=== PATIENT | male | born 1975 | race Two or more races ===

== ENCOUNTER 2019-02-19 18:25 | Inpatient (IN) | payer MEDICAID ==
[~2019-02-19] VITALS: Ht 175.3 cm; Wt 88.5 kg
[2019-02-19 19:13] LABS: Urine Bacteria NONE SEEN /hpf (None Seen); Urine Blood Negative /uL (Negative); Urine Specific Gravity 1.048 (1.001-1.035); Urine WBC 1 /hpf (0 - 3)
[2019-02-19 19:18] LABS: Basophils # (auto) 0.1 uL; Eosinophils # (auto) 0.1 uL; Eosinophils % (auto) 0.8 % (0.0-7.0); Hematocrit 47.2 % (41.0-53.0); Hemoglobin 16.6 g/dL (13.5-17.5); Lymphocytes % (auto) 19.9 % (10.0-50.0); Mean Corpuscular Hemoglobin 32.7 pg (28.0-32.0); Mean Corpuscular Hgb Conc. 35.2 g/dL (32.0-36.0); Mean Corpuscular Volume 92.9 fL (80.0-100.0); Monocytes # (auto) 0.8 uL; Monocytes % (auto) 8.3 % (0.0-12.0); Nucleated Red Blood Cells % 0.1 %; Platelet Count (auto) 170 10^3/uL (140-450); Red Blood Cells 5.08 10^6/uL (4.5-5.90); Red Cell Distribution Width 12.6 % (11.8-14.3)
[2019-02-19 19:47] LABS: Albumin 4.1 g/dL (3.4-5.0); BUN/Creatinine Ratio 19.1; Bilirubin, Total 3.4 mg/dL (0.2-1.0); Calcium 9.5 mg/dL (8.5-10.1); Potassium 3.9 mmol/L (3.5-5.1); Total Protein 8.3 g/dL (6.4-8.2)
[2019-02-20] MEDS ORDERED: DEXTROSE (50%) 50ML SYRG IV PRN ×2 (02:45→13:45)
[2019-02-20] MEDS ORDERED: HYDROcodone-ACET 5/325MG TAB PO PRN (02:45)
[2019-02-20] MEDS ORDERED: ACETAMINOPHEN 325 MG TAB PO PRN (02:45)
[2019-02-20] MEDS ORDERED: TEMAZEPAM 15 MG CAP PO PRN (02:45)
[2019-02-20] MEDS ORDERED: MORPHINE SULFATE 4 MG/ML SYR/VIAL IV PRN (02:45)
[2019-02-20] MEDS ORDERED: ONDANSETRON HCL 4 MG/2 ML VIAL IV PRN (02:45)
--- NOTE | 2019-02-20 04:08 | NUR ---
MS admit from [facility] admitted to tele/MS after SBAR received. Patient oriented to Franchesca hoff RN, unit, room, bed, and unit policies regarding patient care and visiting hours. Patient weighed by bed scale and encouraged to call if they need something. All questions and concerns addressed, patient verbalized understanding. Note: Came per wheelchair awake alert oriented x 4, not in respiratory distress,vital signs checked, advised NPO.
[2019-02-20 04:10] VITALS: BP 120/91
[2019-02-20] MEDS: SODIUM CHLORIDE 0.9% 1,000 ML IV SCH ×2 (04:49→13:21)
[2019-02-20] MEDS ORDERED: NORPTMEDS (05:04)
[2019-02-20 05:50] VITALS: BP 120/91
[2019-02-20] MEDS: ACCU-CHEK COMFORT CURVE STRIP VI SCH ×4 (05:51→23:25)
[2019-02-20] MEDS ORDERED: InsuLIN REG 1unit/0.01ml Soln (100units/ml) SC SCH (06:00)
--- NOTE | 2019-02-20 07:26 | NUR ---
Report given to ca Green is resting and to follow-up to [facility] if they want to order sliding scale on him.
[2019-02-20] MEDS ORDERED: GASTROGRAFIN 120 ML SOL ONE (07:51)
--- NOTE | 2019-02-20 08:00 | NUR ---
RECEIVED PATIENT ALERT AND ORIENTED X4, NOT IN DISTRESS, CLEAR LS IN BILATERAL LUNG LOBES, RR=18 SAT=98%, DEEP BREATHING AND COUGHING ENCOURAGED, DEMONSTRATED AND VERBALIZED UNDERSTANDING WELL, HEART R=78 DENIED CHEST PAIN OR DISCOMFORT AT THIS MOMENT, ABDOMEN SOFT WITH ACTIVE BS, KEEP NPO ORDERED, COOPERATE AND COMPLIANT TO STAY NPO, LARGE CONSISTENT BROWN BM THIS MORNING REPORTED, SKIN DRY AND INTACT WARM TO TOUCH, RADIAL AND PEDAL PULSES PALPABLE, CAP REFILL<3 SECONDS, RESTING ON BED, HEAD OF BED ELEVATED, BED ON LOW POSITION, RAILS UP X2, CALL LIGHT ON REACH, PENDING SURGICAL CONSULT AND ABDOMINAL SMALL BOWEL SERIES, WILL CONTINUE MONITORING.
--- NOTE | 2019-02-20 09:28 | NUR ---
WENT ON WC FOR SMALL BOWEL SERIES AND CAME BACK, NOT IN DISTRESS, DENIED PAIN, WILL CONTINUE MONITORING.
[2019-02-20 10:00] VITALS: BP 110/73
[2019-02-20] MEDS: FAMOTIDINE 20 MG TAB PO SCH ×2 (10:00→21:26)
[2019-02-20] MEDS: cefTRIAXone 1GM/50ML D5W 50 ML IV SCH (10:37)
[2019-02-20 13:00] VITALS: BP 112/88
[2019-02-20 17:00] VITALS: BP 155/98
[2019-02-20] MEDS: InsuLIN REG 1unit/0.01ml Soln (100units/ml) SC SCH ×2 (18:00→23:25)
--- NOTE | 2019-02-20 19:42 | NUR ---
Opening Shift Note Assumed care of patient, awake and alert. No S/S of distress/SOB or pain. Instructed on POC and to call for assist PRN, will continue to monitor for changes Q1hr and PRN.Left upper arm marjorie cath. access with in normal .
--- NOTE | 2019-02-20 19:46 | NUR ---
DENIED PAIN, RESTING ON THE BED, HEAD OF BED ELEVATED, BED IN LOW POSITION RAILS UP X2, CALL LIGHT ON REACH, REPORT WAS GIVEN TO THE SALES TECHNICIAN RN.
--- NOTE | 2019-02-20 19:53 | NUR ---
Opening Shift Note Assumed care of patient, awake and alert. No S/S of distress/SOB or pain. Instructed on POC and to call for assist PRN, will continue to monitor for changes Q1hr and PRN. at bedside.
[2019-02-20 22:00] VITALS: BP 120/98
[2019-02-21] MEDS: SODIUM CHLORIDE 0.9% 1,000 ML IV SCH (02:17)
[2019-02-21 05:00] VITALS: BP 114/79
[2019-02-21] MEDS: ACCU-CHEK COMFORT CURVE STRIP VI SCH ×2 (05:45→12:00)
[2019-02-21] MEDS: InsuLIN REG 1unit/0.01ml Soln (100units/ml) SC SCH ×2 (05:46→12:00)
[2019-02-21 06:07] LABS: Basophils # (auto) 0.1 uL; Basophils % (auto) 0.6 % (0.0-2.0); Eosinophils # (auto) 0.2 uL; Hematocrit 43.1 % (41.0-53.0); Hemoglobin 15.2 g/dL (13.5-17.5); Lymphocytes # (auto) 2.3 uL; Lymphocytes % (auto) 21.4 % (10.0-50.0); Mean Corpuscular Hgb Conc. 35.3 g/dL (32.0-36.0); Mean Corpuscular Volume 93.4 fL (80.0-100.0); Monocytes # (auto) 0.8 uL; Monocytes % (auto) 7.2 % (0.0-12.0); Neutrophils # (auto) 7.4 uL; Neutrophils % (auto) 68.8 % (37.0-80.0); Nucleated Red Blood Cells % 0.1 %; Platelet Count (auto) 148 10^3/uL (140-450); Red Blood Cells 4.61 10^6/uL (4.5-5.90); Red Cell Distribution Width 12.7 % (11.8-14.3); White Blood Cell 10.7 10^3/uL (4.4-10.8)
[2019-02-21 06:19] LABS: Albumin 3.6 g/dL (3.4-5.0); Calcium 7.9 mg/dL (8.5-10.1); Potassium 3.3 mmol/L (3.5-5.1)
[2019-02-21 06:23] LABS: BUN/Creatinine Ratio 29.1; Bilirubin, Total 1.7 mg/dL (0.2-1.0); Total Protein 7.1 g/dL (6.4-8.2)
--- NOTE | 2019-02-21 07:00 | NUR ---
Opening Shift Note Assuming care of patient at this time. Patient is awake and alert. Patient is resting in bed with bed locked and lowered with side rails up x2. Patient denies pain. Patient shows no signs or symptoms of distress or shortness of breath. Instructed patient on the plan of care for today and to call for assistance as needed. Patient states, "I want to go home. I'm ready to go home." Call light within reach. Will continue to round hourly and as needed.
--- NOTE | 2019-02-21 07:17 | NUR ---
Report given to Keron Salinas, patient is resting , no distress.
[2019-02-21 09:00] VITALS: BP 116/92
[2019-02-21] MEDS: FAMOTIDINE 20 MG TAB PO SCH (09:27)
[2019-02-21] MEDS: cefTRIAXone 1GM/50ML D5W 50 ML IV SCH (09:27)
[2019-02-21] MEDS ORDERED: METF-372 PO (10:36)
--- NOTE | 2019-02-21 13:18 | NUR ---
Discharge Discharge instructions given as ordered. Encourage to follow up with PMD as instructed. All questions and concerns addressed. Patient verbalized understanding. IV removed with catheter intact, pressure dressing applied. Patient taken to vehicle with all personal belongings, accompanied by staff and family member. No distress noted at time of departure. Prescription taken to [facility] pharmacy. Patient aware to bulk picker upon discharge. Diabetic education given. Patient refused the final accucheck. Patient verbalizes that he knows how to check his blood sugar without the help of the RN.
== END 2019-02-21 13:20 | disposition home or self-care (01) | DRG 247 ==
LOC: ER 18:27 → OVERFLOW 18:28 → WEST WING 02-20 04:03
PROVIDERS: ADMIT Nurse Practitioner; ATTEND Internal Medicine Nephrology
DX: K56.600 Partial intestinal obstruction, unspecified as to cause (principal); E11.65 Type 2 diabetes mellitus with hyperglycemia; K52.9 Noninfective gastroenteritis and colitis, unspecified; E80.6 Other disorders of bilirubin metabolism; E87.1 Hypo-osmolality and hyponatremia; Z82.0 Family history of epilepsy and other diseases of the nervous system
CPT/HCPCS: 36415; 74176; 74250; 80053; 81001; 82962; 83036; 83690; 85025; G0378; J0696; J1815

== ENCOUNTER 2020-11-19 07:09 | Emergency (ER) | payer MEDICAID ==
[~2020-11-19] VITALS: Ht 175.3 cm; Wt 77.1 kg
[~2020-11-19 07:09] MED LIST: NORPTMEDS
[2020-11-19 07:30] VITALS: BP 112/82
== END 2020-11-19 07:50 | disposition home or self-care (01) ==
LOC: ER 07:09
DX: E11.65 Type 2 diabetes mellitus with hyperglycemia (principal); Z76.0 Encounter for issue of repeat prescription

== ENCOUNTER 2021-03-03 13:03 | Emergency (ER) | payer MEDICAID ==
[~2021-03-03] VITALS: Ht 175.3 cm; Wt 77.1 kg
[2021-03-03 15:26] VITALS: BP 138/78
== END 2021-03-03 16:00 | disposition home or self-care (01) ==
LOC: ER 13:03
DX: E11.9 Type 2 diabetes mellitus without complications (principal); Z76.0 Encounter for issue of repeat prescription
CPT/HCPCS: 82962

== ENCOUNTER 2022-11-07 22:56 | Emergency (ER) | payer MEDICAID ==
[~2022-11-07] VITALS: Ht 175.3 cm; Wt 72.0 kg
[2022-11-07 23:14] VITALS: BP 148/99
[2022-11-07] MEDS ORDERED: METF-372 PO (23:42)
[2022-11-07] MEDS ORDERED: InsuLIN REG 1unit/0.01ml Soln (100units/ml) SC ONE (23:45)
[2022-11-08 00:13] LABS: Basophils # (auto) 0.1 10 ^3/uL (0-0.2); Basophils % (auto) 1.3 % (0.0-2.0); Eosinophils # (auto) 0.2 10 ^3/uL (0-0.8); Eosinophils % (auto) 2.1 % (0.0-7.0); Hematocrit 44.5 % (41.0-53.0); Hemoglobin 15.7 g/dL (13.5-17.5); Lymphocytes # (auto) 2.5 10 ^3/uL (0.4-5.4); Lymphocytes % (auto) 31.7 % (10.0-50.0); Mean Corpuscular Hemoglobin 32.7 pg (28.0-32.0); Mean Corpuscular Hgb Conc. 35.3 g/dL (32.0-36.0); Mean Corpuscular Volume 92.6 fL (80.0-100.0); Monocytes # (auto) 0.5 10 ^3/uL (0-1.3); Monocytes % (auto) 6.4 % (0.0-12.0); Neutrophils # (auto) 4.6 10 ^3/uL (1.6-8.6); Neutrophils % (auto) 58.5 % (37.0-80.0); Nucleated Red Blood Cells % 0.1 %; Red Blood Cells 4.81 10^6/uL (4.5-5.90); Red Cell Distribution Width 12.6 % (11.8-14.3); White Blood Cell 7.8 10^3/uL (4.4-10.8)
[2022-11-08 00:31] LABS: BUN/Creatinine Ratio 23.9 (10.0-20.0); Calcium 8.8 mg/dL (8.5-10.1); Potassium 3.7 mmol/L (3.5-5.1)
[2022-11-08 00:34] LABS: Bilirubin, Total 1.9 mg/dL (0.2-1.0); Total Protein 7.7 g/dL (6.4-8.2)
== END 2022-11-08 01:53 | disposition home or self-care (01) ==
LOC: ER 22:56
DX: E11.65 Type 2 diabetes mellitus with hyperglycemia (principal); R74.8 Abnormal levels of other serum enzymes; R79.89 Other specified abnormal findings of blood chemistry; E86.0 Dehydration; Z98.890 Other specified postprocedural states; Z76.0 Encounter for issue of repeat prescription
CPT/HCPCS: 36415; 80053; 82962; 85025; 96372; 99283; J1815

== ENCOUNTER 2022-12-23 17:24 | Emergency (ER) | payer MEDICAID ==
[~2022-12-23] VITALS: Ht 175.3 cm; Wt 74.2 kg
[~2022-12-23 17:24] MED LIST changes: +METF-372 PO
[2022-12-23 20:12] VITALS: BP 140/89; PULSE 96; RESP 18; TEMP 98.7; O2SAT 98
[2022-12-23] MEDS ORDERED: ONDANSETRON ODT 4 MG TAB PO ONE (20:15)
[2022-12-23] MEDS ORDERED: HYDROcodone-ACET 5/325MG TAB PO ONE (20:15)
[2022-12-23] MEDS ORDERED: HYDR-4902 PO (20:40)
[2022-12-23] MEDS ORDERED: ZOFR4T PO (20:40)
== END 2022-12-23 20:49 | disposition home or self-care (01) ==
LOC: ER 17:24
DX: S80.252A Superficial foreign body, left knee, initial encounter (principal); E11.9 Type 2 diabetes mellitus without complications; Z79.84 Long term (current) use of oral hypoglycemic drugs; Z79.899 Other long term (current) drug therapy; W34.00XA Accidental discharge from unspecified firearms or gun, initial encounter; Y93.89 Activity, other specified; Y92.89 Other specified places as the place of occurrence of the external cause; Y99.8 Other external cause status
CPT/HCPCS: 73562; 99283; Q0162

== ENCOUNTER 2024-12-10 06:10 | Day surgery (SDC) | payer MEDICAID ==
[2024-12-06 10:24] LABS: Hematocrit 42.6 % (41.0-53.0); Hemoglobin 15.2 g/dL (13.5-17.5); Mean Corpuscular Hemoglobin 33.2 pg (28.0-32.0); Mean Corpuscular Volume 92.7 fL (80.0-100.0); Nucleated Red Blood Cells % 0.0 %
[2024-12-06 10:41] LABS: INR 1.04 (0.9-1.15); Partial Thromboplastin Time 26.9 SEC (24.5-34.5); Prothrombin Time 11.0 sec (9.3-11.8); Urine Protein, UAD Negative (Negative)
[2024-12-06 10:56] LABS: Alanine Aminotransferase 15 U/L (7-40); Albumin 4.5 g/dL (3.2-4.8); Alkaline Phosphatase 114 U/L (46-116); Anion Gap 6 (5-15); BUN/Creatinine Ratio 18.2 (10.0-20.0); Blood Urea Nitrogen 12 mg/dL (9-23); Calcium 9.1 mg/dL (8.7-10.4); Carbon Dioxide 26 mmol/L (20-31); Chloride 103 mmol/L (98-107); Potassium 4.0 mmol/L (3.5-5.1); Total Protein 7.1 g/dL (5.7-8.2)
[2024-12-06 10:58] LABS: Bilirubin, Total 2.3 mg/dL (0.2-1.0); Glucose 208 mg/dL (74-106); Sodium 135 mmol/L (136-145)
[~2024-12-10] VITALS: Ht 175.3 cm; Wt 72.6 kg
[~2024-12-10 06:10] MED LIST changes: -NORPTMEDS
[2024-12-10] MEDS ORDERED: GABAPENTIN 300 MG CAP PO ONE (06:45)
[2024-12-10] MEDS ORDERED: CELECOXIB 100 MG CAP PO ONE (06:45)
[2024-12-10] MEDS ORDERED: ACETAMINOPHEN IV 1000 MG/100ML (10MG/ML) IV ONE (06:45)
[2024-12-10] MEDS ORDERED: KETOROLAC TROMETH 30 MG/ML 1ML VIAL ONE (07:01)
[2024-12-10] MEDS ORDERED: GLYCOPYRROLATE 0.2 MG/ML 1ML VIAL ONE (07:01)
[2024-12-10] MEDS ORDERED: PROPOFOL 10 MG/ML 20 ML IV ONE (07:01)
[2024-12-10] MEDS ORDERED: ONDANSETRON HCL 4 MG/2 ML VIAL ONE (07:01)
[2024-12-10] MEDS ORDERED: LIDOCAINE 2% (LOCAL ANESTH.) PF 5ml SDV ONE (07:01)
[2024-12-10] MEDS ORDERED: KETAMINE 50mg/ML 1ml syringe ONE (07:02)
[2024-12-10] MEDS: ceFAZolin 2 GM/D5W50ml 50 ML IV ONE (07:10)
[2024-12-10] MEDS: BUPIVACAINE 0.5% MPF INJ 30ML SDV IJ ONE (07:33)
[2024-12-10 07:41] VITALS: PULSE 97; RESP 13; TEMP 98; O2SAT 99
[2024-12-10] MEDS ORDERED: ONDANSETRON HCL 4 MG/2 ML VIAL IV PRN (07:45)
[2024-12-10] MEDS ORDERED: FLUMAZENIL 0.1 MG/ML INJ 10ML MDV IV PRN (07:45)
[2024-12-10] MEDS ORDERED: HYDROmorphone HCL 2 MG/ML VL/or syr IV PRN (07:45)
[2024-12-10] MEDS ORDERED: fentaNYL CITRATE 100 MCG/2 ML VL IV PRN (07:45)
[2024-12-10] MEDS ORDERED: NALOXONE HCL 0.4 MG/ML VIAL IV PRN (07:45)
[2024-12-10] MEDS ORDERED: hydrALAZINE HCL 20 MG/ML VL IV PRN (07:45)
[2024-12-10 08:26] VITALS: BP 120/81; PULSE 84; RESP 11; O2SAT 96
--- NOTE | 2024-12-15 12:02 | DVHOP2 ---
Operative Report - 2 Report Details Date: 12/10/24 Preop Diagnosis: Left knee foreign body by MCL Postop Diagnosis: Left knee foreign body by MCL Surgeon: Oly Church MD Brick Tender: Robby MEHTA Anesthesiologist: Brandon JORDAN Anesthesia: General Consent: The patient was informed of the risks and benefits of the procedure. These include but are not limited to complications of anesthesia, postoperative infection, incomplete relief of symptoms, recurrence of symptoms, damage to blood vessels, nerves and tendons, deep venous thrombosis, pulmonary embolism and possible need for repeat surgery in the future. Estimated Blood Loss: 2 cc Name of Procedure Performed 1. Left knee foreign body removal; 2. Irrigation and debridement of left knee Procedure Details Procedure Details: After obtaining informed consent, the patient was brought to the operating room and placed in the supine position. After administration of general anesthesia the left lower extremity was prepped and draped in sterile fashion. A longitudinal incision was made along the medial aspect of the left knee, centered over the area of foreign body localization. Dissection was carried carefully through the subcutaneous tissues down to the medial retinaculum and the superficial layer of the medial collateral ligament (MCL). The MCL was carefully split longitudinally to gain access to the deeper layers. The foreign body was identified embedded superficial to the MCL and was carefully extracted using forceps, taking care not to damage adjacent neurovascular structures or joint capsule. The area was copiously irrigated with normal saline where foreign body was located. No additional foreign material or contamination was identified. Hemostasis was achieved with electrocautery. The subcutaneous tissue and skin were closed in layers with absorbable sutures and skin closure strips. Sterile dressing was applied, and the patient was transferred to the recovery unit in stable condition. Condition Good Disposition Home OLY CHURCH MD Dec 15, 2024 12:02
== END 2024-12-10 08:55 | disposition home or self-care (01) ==
LOC: SUR 06:10 → EDUNIT# 12:45
PROVIDERS: ATTEND Orthopaedic Surgery Adult Reconstructive Orthopaedic Surgery
DX: S80.252A Superficial foreign body, left knee, initial encounter (principal); M79.5 Residual foreign body in soft tissue; E11.9 Type 2 diabetes mellitus without complications; Z79.84 Long term (current) use of oral hypoglycemic drugs; Z98.890 Other specified postprocedural states; X58.XXXA Exposure to other specified factors, initial encounter; Y93.89 Activity, other specified; Y92.89 Other specified places as the place of occurrence of the external cause; Y99.8 Other external cause status
CPT/HCPCS: 27372; 36415; 80053; 81001; 82962; 85025; 85610; 85730; 88300; J0690; J1100; J1885; J2003; J2405; J2704; J3490

== ENCOUNTER 2024-12-25 19:24 | Emergency (ER) | payer MEDICAID ==
[~2024-12-25] VITALS: Ht 175.3 cm; Wt 72.7 kg
[2024-12-25 23:02] VITALS: BP 101/73; PULSE 89; RESP 16; TEMP 98.1; O2SAT 98
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
== END 2024-12-25 23:37 | disposition home or self-care (01) ==
LOC: ER 19:24
DX: S81.012D Laceration without foreign body, left knee, subsequent encounter (principal); E11.9 Type 2 diabetes mellitus without complications; Z48.02 Encounter for removal of sutures; Z79.899 Other long term (current) drug therapy; Z79.84 Long term (current) use of oral hypoglycemic drugs; X58.XXXD Exposure to other specified factors, subsequent encounter